=== PATIENT | male | born 1980 | race Caucasian/White ===

== ENCOUNTER 2023-09-06 16:19 | Emergency (ER) | payer BC, SELFPAY ==
--- NOTE | ~2023-09-06 | XR_ITS ---
EXAMINATION: XR CHEST CLINICAL INFORMATION: Productive cough. Chest pain. COMPARISON: None available. TECHNIQUE: 2 views of the chest were obtained. FINDINGS: No significant abnormality is noted involving the heart, lungs, mediastinum, bony thorax or soft tissues. XR/XR chest 2V IMPRESSION: Unremarkable examination.
[2023-09-06 16:29] VITALS: BP 150/81; PULSE 84; RESP 16; TEMP 37; O2SAT 100; BMI 29.6
--- NOTE | 2023-09-06 16:30 | ED_ITS ---
HPI - URI/Sore Throat General Chief Complaint: Upper Respiratory Symptoms Stated Complaint: ?Pneumonia Time Seen by Provider: 09/06/23 18:19 Source: patient Mode of arrival: ambulatory Limitations: no limitations History of Present Illness ED Provider: Kerri Connolly PA-C HPI Narrative: 43 yo male presenting with 2-3 weeks of productive cough, worsening at night and now allowing him to sleep. Recently seen at urgent care last week, started on amoxicillin with no improvement in his symptoms. States he has had runny nose, watery eyes as well. No history of seasonal allergies. He is towards the last couple of days he has had sternal chest pain as well, worse with coughing and leaning forward. No fevers at home. No known sick contacts. No nausea, vomiting, diarrhea. No abdominal pain. He has a nonsmoker with no pulmonary history MD elicited complaint: cough Onset (ago): week(s) (2) Consistency: progressively worsening Severity: moderate Exacerbating factors: supine positioning Relieving factors: nothing Associated symptoms: headache, rhinorrhea, nasal congestion, cough and chest pain Treatments prior to arrival: none Related Data Previous Rx's ?Medication ?Instructions ?Recorded cetirizine 10 mg capsule (Zyrtec) 10 mg PO DAILY #30 caps 09/06/23 hydrocodone-homatropine 5 mg-1.5 5 ml PO Q6H PRN cough #60 mL 09/06/23 mg/5 mL (5 mL) oral syrup (Hycodan) triamcinolone acetonide 55 mcg 2 spray intranasal DAILY #16.9 mL 09/06/23 nasal spray aerosol (Nasacort Allergy) Allergies Allergy/AdvReac Type Severity Reaction Status Date / Time No Known Allergies Allergy Verified 09/06/23 16:33 Review of Systems 2 Review of Systems: Yes all other systems are reviewed and are negative PMFSH Social History Social History Advance Directives: No Advance Directives Information Provided: No Do you have a plan to hurt others: No Plan Physical Exam 2 Vital Signs: Vital Signs: Last Vital Signs Temp 98.5 F 09/06/23 19:43 Pulse 74 09/06/23 19:43 Resp 18 09/06/23 19:43 BP 141/94 H 09/06/23 19:43 Pulse Ox 98 09/06/23 19:43 O2 Del Method Room Air 09/06/23 19:43 BMI result Body Mass Index 29.6 Appearance: Alert. Oriented X3. No acute distress. Head: normocephalic, atraumatic. Eyes: Pupils equal, round and reactive to light. ENT: Pharynx normal. No tonsillar swelling or exudate. Neck: Normal inspection. Neck supple. CVS: Normal heart rate and rhythm. Pulses normal. Respiratory: No respiratory distress. Breath sounds normal. Abdomen: Soft and nontender. +BS x4 Skin: Skin warm and dry. Normal skin color. Normal skin turgor. No rashes. Extremities: No lower extremity edema. No joint swelling. Neuro/psych: Oriented X 3. No motor deficit. No sensory deficit. CN II-XII intact. Normal speech and cognition. Course Course Course Narrative: This is a Rapid Medical Examination (RME) performed by Kerri Connolly PA-C in triage. Full HPI, ROS, assessment and treatment plan per primary provider in the Main ED. 43 yo male with history of HTN presents to the ER for evaluation of productive cough and feeling unwell for the last 2-3 weeks. He reports not sleeping due to the cough. The cough has been productive of yellow, brown, green phlegm. No fevers. He has a nonsmoker. No pulmonary history. [facility] and was put on amoxicillin last week with no improvement. Also reporting new onset chest pain, worse with leaning forward. Vital signs are stable in triage. His lungs are clear to auscultation he is speaking complete sentences. No respiratory distress. Plan: Chest x-ray, EKG, lab work. Medical Decision Making Medical Decision Making MDM Narrative: 43 yo male presenting to the ER for evaluation of worsening productive cough x2- 3 weeks and new onset central chest pains. VS are stable and exam is unremarkable. initial concern for possible viral induced myocarditis but EKG and trop unremarkable. cxr is clear. other labs are all normal. patient remained stable in the ER. his symptoms may be related to seasonal allergies along with component of viral bronchitis will start flonase and zyrtec along w/ antitussive. stable for d/c home. return precautions discussed Differential Diagnosis Differential Diagnoses: The differential diagnosis associated with the presentation includes viral URI w/ cough, bronchitis, seasonal allergies, pneumonia, myocarditis, pericarditis Admission/Observation Consideration of admission/observation: Escalation of care including admission/observation considered Lab Data MDM Lab Attestation statement: I reviewed the patient's lab results. no leukocytosis, negative trop 09/06/23 16:55 09/06/23 16:55 Labs: Lab Results 09/06/23 Range/Units 16:55 WBC 8.2 (4.8-10.8) X10*3/uL RBC 5.03 (4.60-5.80) X10*6/uL Hgb 15.2 (14.0-18.0) g/dl Hct 43.3 (42.0-52.0) % MCV 86.1 (80.0-98.0) fL MCH 30.2 (27.0-33.0) pg MCHC 35.1 (31.0-36.0) g/dl RDW 12.4 (11.0-16.0) % Plt Count 337 (160-400) X10*3/uL MPV 9.4 (9.4-12.4) fL Immature Gran % (Auto) 0.2 (0.0-0.4) % Neut % (Auto) 56.9 (45-73) % Lymph % (Auto) 27.3 (20-40) % [place] % (Auto) 8.3 (2-11) % Eos % (Auto) 6.4 H (0-4) % Baso % (Auto) 0.9 (0-2) % Lymph # (Auto) 2.2 (1.2-4.9) X10*3/uL [place] # (Auto) 0.7 (0.1-1.2) X10*3/uL Eos # (Auto) 0.5 H (0.0-0.4) X10*3/uL Baso # (Auto) 0.1 (0.0-0.2) X10*3/uL Abs Immat Gran (auto) 0.02 (0.00-0.03) X10*3/uL Absolute Neuts (auto) 4.7 (2.0-8.3) x10*3/uL Absolute Nucleated RBC 0.000 (0.0-0.012) X10*3/uL Nucleated RBC % (auto) 0.0 (0.0-0.2) /100WBC Sodium 143 (135-145) mmol/L Potassium 4.2 (3.3-5.1) mmol/L Chloride 108 (96-108) mmol/L Carbon Dioxide 26 (22-29) mmol/L Anion Gap 13 (12-20) BUN 13 (9-16) mg/dL Creatinine 1.32 (0.5-1.4) mg/dL Estim Creat Clear Calc 78.8 Estimated GFR 59 Random Glucose 72 (60-115) mg/dL Calcium 9.3 (8.4-10.2) mg/dL Magnesium 2.0 (1.6-2.6) mg/dL Total Bilirubin 0.4 (0.0-1.0) mg/dL Direct Bilirubin 0.2 (0.0-0.5) mg/dL AST 28 (5-37) U/L ALT 46 H (0-40) U/L Alkaline Phosphatase 111 (39-117) U/L Troponin I High Sens < 2.7 (<3.5-35.0) ng/L Total Protein 7.1 (6.5-8.0) g/dL Albumin 4.0 (3.5-5.0) g/dL Influenza Type A (PCR) NEGATIVE (Negative) Influenza Type B (PCR) NEGATIVE (Negative) RSV RNA Qual (PCR) NEGATIVE (Negative) SARS-CoV-2 RNA (RT-PCR) NEGATIVE (Negative) Independent Interpretation I performed an independent interpretation of an: EKG and Plain X-Ray Interpretation: cxr without focal infiltrate or effusion ekg w/ normal sinus rhythm, hr 77 bpm, no st segment elevations or depressions to suggest ischemia Radiology Impression Discussion of test interpretation with radiology: I have reviewed the radiologist's reading. Radiologist Impression: CLINICAL INFORMATION: Productive cough. Chest pain. COMPARISON: None available. TECHNIQUE: 2 views of the chest were obtained. FINDINGS: No significant abnormality is noted involving the heart, lungs, mediastinum, bony thorax or soft tissues. XR/XR chest 2V IMPRESSION: Unremarkable examination. Prescription Management I considered prescription management with: Pain Medication and Antibiotic Critical Care Time Critical Care Time Critical Care Time: No Discharge Plan Discharge Clinical Impression: Bronchitis Patient Disposition: Home, Self-Care Instructions: Acute Bronchitis (ED) Additional Instructions: Your lab workup today was normal. No elevated white blood cell count or anemia. You tested negative for COVID, flu, RSV. Your chest x-ray was normal, no evidence of pneumonia. Your EKG and troponin heart enzyme were unremarkable, no evidence of strain on her heart. Your symptoms were related to seasonal allergies, causing acute bronchitis. Recommend starting the prescribed medications as directed. Recommend taking Motrin and Tylenol as needed for chest pain, this is likely musculoskeletal pain from coughing. Rest and drink plenty of fluids. Take [id number] cold and flu medications as needed for your other symptoms. Follow-up with your doctor. If you develop new or worsening symptoms call 911 or come back to the ER for further evaluation. Prescriptions: New hydrocodone-homatropine [Hycodan] 5-1.5 mg/5 mL (5 mL) syrup 5 ml PO Q6H PRN (Reason: cough) Qty: 60 0RF Rx Instructions: Partial Fill upon patient request. triamcinolone acetonide [Nasacort Allergy] 55 mcg aerosol,spray 2 spray intranasal DAILY Qty: 16.9 0RF Rx Instructions: administer into each nostril Zyrtec 10 mg capsule 10 mg PO DAILY Qty: 30 0RF Interventions: ED Discharge Assessment Last Done: 09/06/23 19:43 Discharge Date/Time: 09/06/23 19:44 Print Language: Palestinian
--- NOTE | 2023-09-06 16:33 | ECG_ITS ---
Test Reason : CHEST PAIN Blood Pressure : / mmHG Vent. Rate : 077 BPM Atrial Rate : 077 BPM P-R Int : 164 ms QRS Dur : 080 ms QT Int : 386 ms P-R-T Axes : 059 -03 -08 degrees QTc Int : 436 ms Normal sinus rhythm Septal infarct , age undetermined Abnormal ECG No previous ECGs available Referred By: Allie Connolly Electronically Signed By:GRISELDA HIDALGO
[2023-09-06 17:00] LABS: MANUAL DIFF FLAG NO
[2023-09-06 17:08] LABS: Basophils Absolute Auto 0.1 X10*3/uL (0.0-0.2); Basophils Percent Auto 0.9 % (0-2); Eosinophils Absolute Auto 0.5 X10*3/uL (0.0-0.4); Eosinophils Percent Auto 6.4 % (0-4); Hematocrit 43.3 % (42.0-52.0); Hemoglobin 15.2 g/dl (14.0-18.0); Imm Gran Abs Auto 0.02 X10*3/uL (0.00-0.03); Imm Gran Pct Auto 0.2 % (0.0-0.4); Lymphocytes Absolute Auto 2.2 X10*3/uL (1.2-4.9); Lymphocytes Percent Auto 27.3 % (20-40); Mean Corpuscular HGB Conc 35.1 g/dl (31.0-36.0); Mean Corpuscular Hemoglobin 30.2 pg (27.0-33.0); Mean Corpuscular Volume 86.1 fL (80.0-98.0); Mean Platelet Volume 9.4 fL (9.4-12.4); Monocytes Absolute Auto 0.7 X10*3/uL (0.1-1.2); Monocytes Percent Auto 8.3 % (2-11); Neutrophils Absolute Auto 4.7 x10*3/uL (2.0-8.3); Neutrophils Percent Auto 56.9 % (45-73); Platelet Count 337 X10*3/uL (160-400); Red Blood Count 5.03 X10*6/uL (4.60-5.80); Red Cell Distribution Width 12.4 % (11.0-16.0); White Blood Count 8.2 X10*3/uL (4.8-10.8)
[2023-09-06 17:18] LABS: Alanine Aminotransferase 46 U/L (0-40); Alkaline Phosphatase 111 U/L (39-117); Anion Gap 13 (12-20); Aspartate Amino Transferase 28 U/L (5-37); Bilirubin Direct 0.2 mg/dL (0.0-0.5); Bilirubin Total 0.4 mg/dL (0.0-1.0); Blood Urea Nitrogen 13 mg/dL (9-16); Calcium 9.3 mg/dL (8.4-10.2); Carbon Dioxide 26 mmol/L (22-29); Chloride 108 mmol/L (96-108); Creatinine Clr Calc Pharmacy 78.8; Estimated Glomerular Filt Rate 59; Glucose Random 72 mg/dL (60-115); Potassium 4.2 mmol/L (3.3-5.1); Sodium 143 mmol/L (135-145); Total Protein 7.1 g/dL (6.5-8.0)
[2023-09-06 17:23] LABS: Troponin-I High Sensitivity < 2.7 ng/L (<3.5-35.0)
[2023-09-06 17:39] LABS: Influenza A PCR NEGATIVE (Negative); Influenza B PCR NEGATIVE (Negative); Resp Syncy Virus RNA Qual PCR NEGATIVE (Negative); SARS COV2 PCR INHOUSE NEGATIVE (Negative)
[2023-09-06 18:55] VITALS: BP 141/94; PULSE 74; RESP 18; TEMP 36.9; O2SAT 98
[2023-09-06 19:43] VITALS: BP 141/94; PULSE 74; RESP 18; TEMP 36.9; O2SAT 98
== END 2023-09-06 19:44 | disposition home or self-care (01) ==
PROVIDERS: Physician Assistant; Emergency Provider Emergency Medicine
DX: J40 Bronchitis, not specified as acute or chronic (principal); Z03.818 Encounter for observation for suspected exposure to other biological agents ruled out; R05.9 Cough, unspecified; R07.9 Chest pain, unspecified
CPT/HCPCS: 0241U; 71046; 80048; 80076; 83735; 84484; 85025; 93005; 99283; 99284

== ENCOUNTER → 2023-09-06 16:33 | Outpatient (BNV) | payer BC, SELFPAY | PROVIDERS: Emergency Provider Emergency Medicine; Visit Provider Internal Medicine | DX: R07.9 Chest pain, unspecified (principal) | CPT/HCPCS: 93010 ==

== ENCOUNTER → 2023-12-19 10:49 | Outpatient (BNVA) | payer SELFPAY | PROVIDERS: Visit Provider Physician Assistant | DX: Z02.79 Encounter for issue of other medical certificate (principal) ==